=== PATIENT | female | born 1990 | race American Indian/Alaskan Native ===

== ENCOUNTER 2017-05-09 07:25 | Emergency (ER) | payer BC ==
[2017-05-09 07:25] VITALS: BMI 33.5
[2017-05-09 07:49] VITALS: TEMP 99
[2017-05-09] MEDS ORDERED: DiphenhydrAMINE 50 mg/ml Inj IVP STA (07:51)
--- NOTE | 2017-05-09 08:09 | ED PDOC ---
Arrival/HPI - General Chief Complaint: Allergic Reaction Time Seen by Provider: 05/09/17 07:51 Historian: Patient - History of Present Illness Narrative History of Present Illness (Text): 05/09/17 08:00 Natalee Shah is a 26 year old female, whose past medical history includes allergic reactions, who presents to the emergency department complaining of a rash and lip swelling since waking up this morning. Patient reports she has gone to a asbestos abatement worker before but does not find what triggers the reaction. Patient denies new detergents, creams, soap, or fragrance. She denies shortness of breath, chest pain, or other complaints. Time/Duration: Prior to Arrival Symptom Onset: Sudden Symptom Course: Unchanged Activities at Onset: Rest Context: Home Past Medical History - Provider Review Nursing Documentation Reviewed: Yes - Infectious Disease Hx of Infectious Diseases: None - Tetanus Immunization Tetanus Immunization: Unknown - Reproductive Menopause: No - Pulmonary Hx Asthma: Yes - Psychiatric Hx Substance Use: No - Anesthesia Hx Anesthesia: No Hx Anesthesia Reactions: No Hx Malignant Hyperthermia: No Family/Social History - Physician Review Nursing Documentation Reviewed: Yes Family/Social History: Unknown Family HX Smoking Status: Current Some Days Smoker Hx Alcohol Use: Yes Hx Substance Use: No Allergies/Home Meds Allergies/Adverse Reactions: Allergies No Known Allergies Allergy (Verified 12/18/15 16:51) Review of Systems - Review of Systems Constitutional: absent: Fevers Eyes: absent: Vision Changes, Eye Pain ENT: absent: Voice Changes, Sore Throat, Rhinorrhea Respiratory: absent: SOB, Cough, Sputum, Wheezing Cardiovascular: absent: Chest Pain Gastrointestinal: absent: Abdominal Pain, Constipation, Diarrhea, Nausea, Vomiting Genitourinary Female: absent: Dysuria, Hematuria Skin: Rash, Other (lip swelling ) Neurological: absent: Headache, Dizziness Physical Exam Vital Signs Reviewed: Yes Vital Signs Temp Pulse Resp BP Pulse Ox 05/09/17 11:50 70 17 125/80 100 05/09/17 11:07 75 17 124/77 100 05/09/17 09:03 78 17 126/80 100 05/09/17 07:30 99 F 80 18 125/84 99 Temperature: Afebrile Blood Pressure: Normal Pulse: Regular Respiratory Rate: Normal Appearance: Positive for: Well-Appearing, Non-Toxic, Comfortable Pain Distress: None Mental Status: Positive for: Alert and Oriented X 3 - Systems Exam Head: Present: Atraumatic, Normocephalic Pupils: Present: PERRL Extroacular Muscles: Present: EOMI Conjunctiva: Present: Normal Mouth: No: Normal Lips (upper and lower lip swelling ) Pharnyx: Present: Normal, Other (normal phonation ). No: ERYTHEMA, EXUDATE, TONSILS ENLARGED, Peritonsilar Swelling, Uvular Deviation, Muffled/Hoarse Voice , Strider, Soft Palate/Uvular Edema Neck: Present: Normal Range of Motion. No: MIDLINE TENDERNESS Respiratory/Chest: Present: Clear to Auscultation, Good Air Exchange. No: Respiratory Distress, Accessory Muscle Use, Wheezes, Rales, Rhonchi Cardiovascular: Present: Regular Rate and Rhythm, Normal S1, S2. No: Murmurs Upper Extremity: Present: Normal Inspection, Normal ROM, NORMAL PULSES. No: Cyanosis, Edema, Tenderness, Swelling Lower Extremity: Present: Normal Inspection. No: Edema Neurological: Present: GCS=15, CN II-XII Intact, Speech Normal Skin: Present: Rashes (urticarial rash to chest and extremities) Psychiatric: Present: Alert, Oriented x 3, Normal Insight, Normal Concentration Medical Decision Making ED Course and Treatment: 05/09/17 Impression: 26 year old female with allergic reaction. Upper and lower lip swelling. Plan: -- Benadryl, Pepcid, and Prednisone -- Reassess and disposition Progress Notes: 05/09/17 11:42 Patient was monitored for 4 hours. She has had no worsening of symptoms or respiratory involvment. On reevaluation the patient feels better and is in no acute distress. I have discussed the results and plan with the patient, who expresses understanding. Patient given the opportunity to ask question, all questions were answered and there is agreement with the plan to discharge the patient home. Patient is stable for discharge. 05/09/17 12:39 - Medication Orders Current Medication Orders: Discontinued Medications Diphenhydramine HCl (Benadryl) 50 mg IVP STAT STA Stop: 05/09/17 07:52 Last Admin: 05/09/17 08:15 Dose: 50 mg IVP Administration Document 05/09/17 08:15 [facility] (Rec: 05/09/17 08:15 [facility] [id number]) Charges for Administration # of IVP Administrations 1 Famotidine (Pepcid) 20 mg IVP STAT STA Stop: 05/09/17 07:52 Last Admin: 05/09/17 08:15 Dose: 20 mg IVP Administration Document 05/09/17 08:15 [facility] [place] (Rec: 05/09/17 08:15 [facility] [place] [id number]) Charges for Administration # of IVP Administrations 1 Prednisone (Prednisone Tab) 60 mg PO STAT ONE Stop: 05/09/17 07:52 Last Admin: 05/09/17 08:15 Dose: 60 mg - Scribe Statement The provider has reviewed the documentation as recorded by the Scribe Christy Tse Provider Scribe Attestation: All medical record entries made by the Scribe were at my direction and personally dictated by me. I have reviewed the chart and agree that the record accurately reflects my personal performance of the history, physical exam, medical decision making, and the department course for this patient. I have also personally directed, reviewed, and agree with the discharge instructions and disposition. Disposition/Present on Arrival - Present on Arrival Any Indicators Present on Arrival: No History of DVT/PE: No History of Uncontrolled Diabetes: No Urinary Catheter: No History of Decub. Ulcer: No History Surgical Site Infection Following: None - Disposition Have Diagnosis and Disposition been Completed?: Yes Diagnosis: Allergic reaction Disposition: HOME/ ROUTINE Disposition Time: 11:41 Patient Plan: Discharge Patient Problems: Current Active Problems Problem Status Onset Allergic reaction Acute Condition: GOOD Discharge Instructions (ExitCare): General Allergic Reaction (ED) Additional Instructions: Take prednisone x 3 days. Benadryl as needed for pruritis. Return to Emergency department if condition worsens. Prescriptions: predniSONE [predniSONE Tab] 60 mg PO DAILY #9 tab Referrals: Joel Chapman MD [Primary Care Provider] - Follow up with primary Forms: [employer] (Dutch), WORK NOTE
[2017-05-09 11:06] VITALS: RESP 17; O2SAT 100
[2017-05-09 11:52] VITALS: BP 125/80; PULSE 70
== END 2017-05-09 11:50 | disposition home or self-care (01) ==
LOC: ED 07:25
DX: T78.40XA Allergy, unspecified, initial encounter (principal); X58.XXXA Exposure to other specified factors, initial encounter
CPT/HCPCS: 96374; 96375; 99285; J1200

== ENCOUNTER 2017-12-20 08:53 | Emergency (ER) | payer BC ==
[2017-12-20 08:53] VITALS: BMI 33.5
[2017-12-20 09:19] VITALS: BP 117/47; RESP 18; TEMP 98.6
[2017-12-20 10:07] VITALS: PULSE 83; O2SAT 99
--- NOTE | 2017-12-20 10:54 | ED PDOC ---
Arrival/HPI - General Chief Complaint: Allergic Reaction Time Seen by Provider: 12/20/17 09:24 Historian: Patient - History of Present Illness Narrative History of Present Illness (Text): 12/20/17 10:51 A 27 year old female presents to the emergency department complaining of an allergic reaction since last night. Patient reports taking Benadryl, with mild relief. She denies any new exposures. Patient notes similar allergic breakouts intermittently over the past 6 years. She was referred to an duck farmer, who she states told her "to deal with it." Patient denies any fever, chills, nausea, vomiting, abdominal pain, chest pain, shortness of breath, wheezing or any other complaints. Time/Duration: Other (last night) Symptom Course: Unchanged Context: Home Past Medical History - Provider Review Nursing Documentation Reviewed: Yes - Infectious Disease Hx of Infectious Diseases: None - Tetanus Immunization Tetanus Immunization: Unknown - Cardiac Hx Cardiac Disorders: No - Pulmonary Hx Respiratory Disorders: Yes Hx Asthma: Yes - Neurological Hx Neurological Disorder: No - HEENT Hx HEENT Disorder: No - Renal Hx Renal Disorder: No - Endocrine/Metabolic Hx Endocrine Disorders: No - Hematological/Oncological Hx Blood Disorders: No - Integumentary Hx Dermatological Disorder: Yes (hives) - Musculoskeletal/Rheumatological Hx Musculoskeletal Disorders: No - Gastrointestinal Hx Gastrointestinal Disorders: No - Genitourinary/Gynecological Hx Genitourinary Disorders: No - Psychiatric Hx Psychophysiologic Disorder: No Hx Substance Use: No - Anesthesia Hx Anesthesia: No Hx Anesthesia Reactions: No Hx Malignant Hyperthermia: No Family/Social History - Physician Review Nursing Documentation Reviewed: Yes Family/Social History: No Known Family HX Smoking Status: Current Some Days Smoker Hx Alcohol Use: Yes Frequency of alcohol use: Socially Hx Substance Use: No Allergies/Home Meds Allergies/Adverse Reactions: Allergies No Known Allergies Allergy (Verified 12/20/17 09:15) Review of Systems - Physician Review All systems were reviewed & negative as marked: Yes - Review of Systems Constitutional: absent: Fevers, Night Sweats Respiratory: absent: SOB, Wheezing Cardiovascular: absent: Chest Pain Gastrointestinal: absent: Abdominal Pain, Nausea, Vomiting Skin: Rash Physical Exam Vital Signs Reviewed: Yes Vital Signs Temp Pulse Resp BP Pulse Ox 12/20/17 09:43 83 18 99 12/20/17 09:15 98.6 F 81 18 117/47 L 100 Temperature: Afebrile Blood Pressure: Hypotensive Pulse: Regular Respiratory Rate: Normal Appearance: Positive for: Well-Appearing, Non-Toxic, Comfortable Pain Distress: None Mental Status: Positive for: Alert and Oriented X 3 - Systems Exam Head: Present: Atraumatic, Normocephalic Pupils: Present: PERRL Extroacular Muscles: Present: EOMI Conjunctiva: Present: Normal Mouth: Present: Moist Mucous Membranes Pharnyx: Present: Normal. No: ERYTHEMA, EXUDATE, TONSILS ENLARGED, Peritonsilar Swelling, Uvular Deviation, Muffled/Hoarse Voice, Strider Neck: Present: Normal Range of Motion Respiratory/Chest: Present: Clear to Auscultation, Good Air Exchange. No: Respiratory Distress, Accessory Muscle Use Cardiovascular: Present: Regular Rate and Rhythm, Normal S1, S2. No: Murmurs Abdomen: Present: Normal Bowel Sounds. No: Tenderness, Distention, Peritoneal Signs Back: Present: Normal Inspection Upper Extremity: Present: Normal Inspection. No: Cyanosis, Edema Lower Extremity: Present: Normal Inspection. No: Edema Neurological: Present: GCS=15, CN II-XII Intact, Speech Normal Skin: Present: Warm, Dry, Rashes (Urticaria to bilateral upper and lower extremities), Normal Color Psychiatric: Present: Alert, Oriented x 3, Normal Insight, Normal Concentration Medical Decision Making ED Course and Treatment: 12/20/17 10:54 Impression: A 27 year old female with an allergic reaction Differential Diagnosis included but are not limited to: Allergic reaction Plan: -- Decadron -- Reassess and disposition Progress Notes: On re-evaluation, patient feels better and is in no acute distress. I have discussed the plan with the patient, who expresses understanding. Patient in agreement with plan to be discharged home. Patient is stable for discharge. Patient was instructed to follow up with physician or return if symptoms worsen or new concerning symptoms arise. - Medication Orders Current Medication Orders: Discontinued Medications Dexamethasone (Decadron Inj) 10 mg IM STAT STA Stop: 12/20/17 09:25 Last Admin: 12/20/17 09:32 Dose: 10 mg IM Administration Charges Document 12/20/17 09:32 MR (Rec: 12/20/17 09:33 MR [id number]) Injection Site MAR Injection Site Right Deltoid Charges for Administration # of IM Administrations 1 - Scribe Statement The provider has reviewed the documentation as recorded by the Scribe Maryjane Tripathi Provider Scribe Attestation: All medical record entries made by the Scribe were at my direction and personally dictated by me. I have reviewed the chart and agree that the record accurately reflects my personal performance of the history, physical exam, medical decision making, and the department course for this patient. I have also personally directed, reviewed, and agree with the discharge instructions and disposition. Disposition/Present on Arrival - Present on Arrival Any Indicators Present on Arrival: No History of DVT/PE: No History of Uncontrolled Diabetes: No Urinary Catheter: No History of Decub. Ulcer: No History Surgical Site Infection Following: None - Disposition Have Diagnosis and Disposition been Completed?: Yes Diagnosis: Allergic reaction Disposition: HOME/ ROUTINE Disposition Time: 09:20 Condition: GOOD Discharge Instructions (ExitCare): Allergy Skin Testing Additional Instructions: MALORIE VALIENTE, thank you for letting us take care of you today. Your provider was Ho Eubanks DO and you were treated for ALLERGIC REACTION. The emergency medical care you received today was directed at your acute symptoms. If you were prescribed any medication, please fill it and take as directed. It may take several days for your symptoms to resolve. Return to the Emergency Department if your symptoms worsen, do not improve, or if you have any other problems. Please contact your doctor or call one of the physicians/clinics you have been referred to that are listed on the Patient Visit Information form that is included in your discharge packet. Bring any paperwork you were given at discharge with you along with any medications you are taking to your follow up visit. Our treatment cannot replace ongoing medical care by a primary care provider outside of the emergency department. Thank you for allowing the [facility] team to be part of your care today. Follow up with your primary care doctor in 2-3 days for re-evaluation and further management. You may need to be referred to an duck farmer for testing. Prescriptions: predniSONE [Prednisone] 40 mg PO DAILY #10 tab Referrals: [facility] José Luis Rewilla, [Non-Staff] - Follow up with primary Forms: [employer] (Serbian), WORK NOTE
== END 2017-12-20 09:43 | disposition home or self-care (01) ==
LOC: ED 08:53
DX: T78.40XA Allergy, unspecified, initial encounter (principal)
CPT/HCPCS: 96372; 99283; J1100

== ENCOUNTER 2018-03-13 14:57 | Emergency (ER) | payer BC ==
[2018-03-13 15:46] VITALS: RESP 18; BMI 35.4
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
--- NOTE | 2018-03-13 18:19 | RAD ---
PROCEDURE: Right Hand Radiographs. Yes HISTORY: Posttraumatic right wrist swelling COMPARISON: March 13, 2018 FINDINGS: BONES: Normal. No fracture. JOINTS: Normal. No osteoarthritic changes. SOFT TISSUES: Normal. OTHER FINDINGS: None. IMPRESSION: Normal right hand radiographs.
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
[2018-03-13 18:33] VITALS: BP 132/78; PULSE 72; TEMP 98; O2SAT 98
== END 2018-03-13 18:33 | disposition home or self-care (01) ==
LOC: ED 14:57
DX: S63.501A Unspecified sprain of right wrist, initial encounter (principal); Y04.0XXA Assault by unarmed brawl or fight, initial encounter; Y92.9 Unspecified place or not applicable

== ENCOUNTER 2018-06-29 12:27 | Emergency (ER) | payer BC ==
[2018-06-29 12:43] VITALS: RESP 18; TEMP 97.8; O2SAT 99; BMI 35.4
--- NOTE | 2018-06-29 14:23 | ED PDOC ---
Arrival/HPI - General Chief Complaint: Allergic Reaction Time Seen by Provider: 06/29/18 12:43 Historian: Patient - History of Present Illness Narrative History of Present Illness (Text): 06/29/18 12:48 27 year old female, whose past medical history includes hives and "random allergic reactions," who presents to the emergency department for evaluation of swelling to both lips and right lower side of face since this morning. Pt reports she woke up this morning with swollen lips and itchy throat when swallowing. Pt reports new use of Abrevia on lips for the past 2 days for a cold sore. Patient states she had menstrual cramps yesterday so she took Ibuprofen last night, noting she has taken it before with no issues. Patient notes she took Peptobismal yesterday since she was vomiting and had diarrhea, stating she has also taken it before with no issues. Pt denies any chest pain, shortness of breath, skin rashes, swelling, use of any new detergents, clothes, food, or any other complaints. Pt refuses Benadryl due to it making her hives worse, noting she has been given Prednisone by doctors in the past instead of Benadryl whenever she had any allergic reactions. Time/Duration: Prior to Arrival Symptom Onset: Sudden Symptom Course: Unchanged Activities at Onset: Light Past Medical History - Provider Review Nursing Documentation Reviewed: Yes - Infectious Disease Hx of Infectious Diseases: None - Tetanus Immunization Tetanus Immunization: Unknown - Cardiac Hx Cardiac Disorders: No - Pulmonary Hx Respiratory Disorders: Yes Hx Asthma: Yes - Neurological Hx Neurological Disorder: No - HEENT Hx HEENT Disorder: No - Renal Hx Renal Disorder: No - Endocrine/Metabolic Hx Endocrine Disorders: No - Hematological/Oncological Hx Blood Disorders: No - Integumentary Hx Dermatological Disorder: Yes (hives) - Musculoskeletal/Rheumatological Hx Musculoskeletal Disorders: No - Gastrointestinal Hx Gastrointestinal Disorders: No - Genitourinary/Gynecological Hx Genitourinary Disorders: No - Psychiatric Hx Psychophysiologic Disorder: No Hx Substance Use: No - Anesthesia Hx Anesthesia: No Hx Anesthesia Reactions: No Hx Malignant Hyperthermia: No Family/Social History - Physician Review Nursing Documentation Reviewed: Yes Family/Social History: No Known Family HX Smoking Status: Current Some Days Smoker Hx Alcohol Use: Yes Hx Substance Use: No Allergies/Home Meds Allergies/Adverse Reactions: Allergies No Known Allergies Allergy (Verified 03/13/18 16:32) Review of Systems - Physician Review All systems were reviewed & negative as marked: Yes - Review of Systems Constitutional: Other (Pt notes swelling to both lips and cold sore on right upper lip). absent: Normal ENT: Other (pt notes itchy throat when swallowing ). absent: Normal Respiratory: Normal. absent: SOB Cardiovascular: Normal. absent: Chest Pain Skin: Normal. absent: Rash Physical Exam Vital Signs Reviewed: Yes Vital Signs Temp Pulse Resp BP Pulse Ox 06/29/18 12:43 97.8 F 80 18 108/74 99 Temperature: Afebrile Blood Pressure: Normal Pulse: Regular Respiratory Rate: Normal Appearance: Positive for: Well-Appearing, Non-Toxic Pain Distress: None Mental Status: Positive for: Alert and Oriented X 3 - Systems Exam Head: Present: Atraumatic, Normocephalic Pupils: Present: PERRL Extroacular Muscles: Present: EOMI Conjunctiva: Present: Normal Mouth: Present: Moist Mucous Membranes. No: Drooling, Normal Lips (swelling to both lips noted. cold sore noted. ) Pharnyx: Present: Normal. No: ERYTHEMA, EXUDATE, Muffled/Hoarse Voice Neck: Present: Normal Range of Motion Respiratory/Chest: Present: Clear to Auscultation, Good Air Exchange. No: Respiratory Distress, Accessory Muscle Use Cardiovascular: Present: Regular Rate and Rhythm, Normal S1, S2. No: Murmurs Abdomen: No: Tenderness, Distention, Peritoneal Signs Back: Present: Normal Inspection Upper Extremity: Present: Normal Inspection. No: Cyanosis, Edema Lower Extremity: Present: Normal Inspection. No: Edema Neurological: Present: GCS=15, CN II-XII Intact, Speech Normal Skin: Present: Warm, Dry, Normal Color. No: Rashes Psychiatric: Present: Alert, Oriented x 3, Normal Insight, Normal Concentration Medical Decision Making ED Course and Treatment: 06/29/18 12:48 Impression: 27 year old female presents to the emergency department: Angioedema Plan: -- Decadron Inj -- Pepcid -- Reassess and disposition Prior Visits: Notes and results from previous visits were reviewed. Patient was last seen in the emergency department on 03/13/18 with R wrist swelling/tenderness x 2 days. Pt was discharged home in stable condition and prescribed Naproxen 500mg PO BID. Progress Notes: 06/29/18 14:32 Upon reevaluation, pt is getting better. Pt wants to follow up with PMD. I will send pt home with Pepcid. - Medication Orders Current Medication Orders: Discontinued Medications Dexamethasone (Decadron Inj) 10 mg IM STAT STA Stop: 06/29/18 12:57 Last Admin: 06/29/18 13:06 Dose: 10 mg IM Administration Charges Document 06/29/18 13:06 OCS (Rec: 06/29/18 13:06 OCS [id number]) Injection Site MAR Injection Site Left Deltoid Charges for Administration # of IM Administrations 1 Famotidine (Pepcid) 40 mg PO STAT STA Stop: 06/29/18 12:57 Last Admin: 06/29/18 13:06 Dose: 40 mg - Scribe Statement The provider has reviewed the documentation as recorded by the Scribe Elena Brunson All medical record entries made by the Scribe were at my direction and personally dictated by me. I have reviewed the chart and agree that the record accurately reflects my personal performance of the history, physical exam, medical decision making, and the department course for this patient. I have also personally directed, reviewed, and agree with the discharge instructions and disposition. Disposition/Present on Arrival - Present on Arrival Any Indicators Present on Arrival: No History of DVT/PE: No History of Uncontrolled Diabetes: No Urinary Catheter: No History of Decub. Ulcer: No History Surgical Site Infection Following: None - Disposition Have Diagnosis and Disposition been Completed?: Yes Diagnosis: Angioedema Disposition: HOME/ ROUTINE Disposition Time: 14:39 Patient Plan: Discharge Condition: IMPROVED Discharge Instructions (ExitCare): Angioedema (DC) Prescriptions: Famotidine [Pepcid] 20 mg PO Q12 7 Days #14 tab Referrals: [facility] [place] [Outside] - Follow up with primary Forms: [employer] (Danish), WORK NOTE
[2018-06-29 14:47] VITALS: BP 110/80; PULSE 72
== END 2018-06-29 14:50 | disposition home or self-care (01) ==
LOC: ED 12:27
DX: T78.3XXA Angioneurotic edema, initial encounter (principal)
CPT/HCPCS: 81025; 96372; 99283; J1100